=== PATIENT | male | born 1955 | race Caucasian/White ===

== ENCOUNTER 2018-02-19 06:00 | Emergency (ER) | payer OTHER ==
[~2018-02-19] VITALS: Ht 175.3 cm; Wt 86.2 kg
[2018-02-19] MEDS ORDERED: ONDANSETRON ODT8 MG PO (08:12)
--- NOTE | 2018-02-19 12:25 | EKG ---
[facility] [address] [place] [address] Signed Normal sinus rhythm with sinus arrhythmia Normal ECG No previous ECGs available Confirmed by BAYLEE ROUSSEAU MD ([id number] on 02/19/2018 12:25:35 PM Electronically Signed By: BAYLEE ROUSSEAU MD 02/19/18 1225 PATIENT NAME: RON ANSARI Electrocardiogram DATE OF : 57 PHYSICIAN: BAYLEE ROUSSEAU MD REPORT #: [id number] REPORT IS CONFIDENTIAL AND NOT TO BE RELEASED WITHOUT AUTHORIZATION
== END 2018-02-19 08:45 | disposition home or self-care (01) ==
LOC: ED 06:00
DX: R10.11 Right upper quadrant pain (principal); R11.2 Nausea with vomiting, unspecified
CPT/HCPCS: 74177; 80053; 81001; 83690; 85025; 93005; 93010; 96361; 96374; 96375; 99284; J1170; J2405; J7030; Q9967